=== PATIENT | female | born 1940 | race Caucasian/White ===

== ENCOUNTER 2017-05-02 21:22 | Emergency (ER) | payer SELFPAY ==
[2017-05-02] MEDS ORDERED: Albuterol/Ipratropium NEB.SOL* Albuterol 2.5 MG/Ipratropium 0.5 MG 3 ML INH ONE (22:03)
[2017-05-02] MEDS ORDERED: Albuterol 2.5 MG/3 ML NEB.SOL* (0.083%) INH ONE (22:03)
[2017-05-02] MEDS ORDERED: NS 0.9% 1000 ML* 1,000 ML IV ONE (22:03)
[2017-05-03] MEDS ORDERED: Oseltamivir CAP* 75 MG PO ONE ×2 (00:08→02:00)
[2017-05-03 00:29] LABS: ABS Basophils 0 10^3/ul (0-0.2); ABS Eosinophils 0 10^3/ul (0-0.6); ABS Lymphocytes 2.8 10^3/ul (1.0-4.8); ABS Monocytes 0.8 10^3/ul (0-0.8); ABS Neutrophils 3.1 10^3/ul (1.5-7.7); ABS Nucleated RBC 0.04 10^3/ul; Eosinophil % 0.6 % (0-6); Hematocrit 39 % (35-47); Hemoglobin 13.2 g/dl (12.0-16.0); Lymphocyte % 41.5 % (25-47); Mean Corpuscular HGB Conc 34 g/dl (31-36); Mean Corpuscular Hemoglobin 33 pg (27-31); Mean Corpuscular Volume 96 fL (80-97); Mean Platelet Volume 11 um3 (7.4-10.4); Nucleated Red Blood Cells % 0.6; Red Blood Count 4.05 10^6/ul (4.0-5.4); Red Cell Distribution Width 13 % (10.5-15); White Blood Count 6.7 10^3/ul (3.5-10.8)
[2017-05-03 00:44] LABS: EGFR Non-African American 78.8 (>60)
[2017-05-03] MEDS ORDERED: Albuterol HFA INHALER* 8 gm MDI INH PRN (00:46)
[2017-05-03 00:53] LABS: Platelet Count 105 10^3/ul (150-450)
[2017-05-03] MEDS ORDERED: Codeine TAB* 30 MG PO ONE (00:55)
[2017-05-03] MEDS ORDERED: Potassium Chlor TAB* 20 MEQ TAB.ER PO ONE (01:11)
--- NOTE | 2017-05-03 01:47 | ED ---
Drew Sweet Thomas, scribed for Ayala Myles MD on 05/02/17 at 2205 . Respiratory - HPI Summary HPI Summary: The patient is a 76 year old female referred from [facility] complaining of a cough for the last month and especially in the last 4-5 days. The cough is not productive. Patient additionally complains of sinus congestion. Patient denies fever, chest pain, and shortness of breath. She is a former smoker. - History of Current Complaint Chief Complaint: EDUpperRespComplaint Stated Complaint: SOB, SHAKY, CONFUSED-COMING FROM [facility] Time Seen by Provider: 05/02/17 21:55 Hx Obtained From: Patient Onset/Duration: Lasting Weeks - onset one month, Still Present, Worse Since - last 4-5 days Timing: Constant Current Severity: Moderate Pain Intensity: 8 Character: Cough (Nonproductive) Aggravating Factor(s): Nothing Alleviating Factor(s): Nothing Associated Signs and Symptoms: Negative - fever, chest pain, shortness of breath , Sinus Discomfort - Allergy/Home Medications Allergies/Adverse Reactions: Allergies Allergy/AdvReac Type Severity Reaction Status Date / Time No Known Allergies Allergy Verified 05/02/17 22:20 PMH/Surg Hx/FS Hx/Imm Hx Previously Healthy: No Endocrine/Hematology History: Denies: Hx Diabetes Respiratory History: Reports: Hx Asthma - Surgical History Surgery Procedure, Year, and Place: Laporoscopy, 1971; Jaw Reconstruction ( Deformity), 1979 Infectious Disease History: No Infectious Disease History: Denies: Traveled Outside the [place] in Last 30 Days - Family History Known Family History: Positive: Other - Cancer - Social History Alcohol Use: Occasionally Substance Use Type: Reports: None Smoking Status (MU): Former Smoker Length of Time of Smoking/Using Tobacco: ~1 PPD x 12 Years Review of Systems Negative: Fever Positive: Other - Sinus congestion Negative: Chest Pain Positive: Cough. Negative: Shortness Of Breath All Other Systems Reviewed And Are Negative: Yes Physical Exam - Summary Physical Exam Summary: VITAL SIGNS: Reviewed. GENERAL: Patient is a well-developed and nourished female who is lying comfortable in the stretcher. Patient is not in any acute respiratory distress. HEAD AND FACE: No signs of trauma. No ecchymosis, hematomas or skull depressions. No sinus tenderness. EYES: PERRLA, EOMI x 2, No injected conjunctiva, no nystagmus. EARS: Hearing grossly intact. Ear canals and tympanic membranes are within normal limits. MOUTH: Oropharynx within normal limits. NECK: Supple, trachea is midline, no adenopathy, no JVD, no carotid bruit, no c- spine tenderness, neck with full ROM. CHEST: Symmetric, no tenderness at palpation LUNGS: She has a cough. She has decreased breath sounds bilaterally with some rhonchi. CVS: Regular rate and rhythm, S1 and S2 present, no murmurs or gallops appreciated. ABDOMEN: Soft, non-tender. No signs of distention. No rebound no guarding, and no masses palpated. Bowel sounds are normal. EXTREMITIES: FROM in all major joints, no edema, no cyanosis or clubbing. NEURO: Alert and oriented x 3. No acute neurological deficits. Speech is normal and follows commands. SKIN: Dry and warm Triage Information Reviewed: Yes Vital Signs On Initial Exam: Initial Vitals Temp Pulse Resp BP Pulse Ox 98.2 F 84 24 142/64 94 05/02/17 21:25 05/02/17 21:25 05/02/17 21:25 05/02/17 21:25 05/02/17 21:25 Vital Signs Reviewed: Yes Diagnostics - Vital Signs Vital Signs Temp Pulse Resp BP Pulse Ox 05/02/17 21:25 98.2 F 84 24 142/64 94 - Laboratory Result Diagrams: 05/02/17 00:12 05/02/17 00:12 Lab Statement: Any lab studies that have been ordered have been reviewed, and results considered in the medical decision making process. - Radiology CXR Xray Interpretation: No Acute Changes - No acute process Radiology Interpretation Completed By: ED Physician Disposition - Course Assessment/Plan: The patient is a 76 year old female referred from [facility] complaining of a cough for the last month and especially in the last 4-5 days. She has a cough with decreased breath sounds bilaterally with some rhonchi. In the ED course the patient was given Ventolin, Duoneb, Tamiflu , and IV fluids. Bloodwork was obtained. CXR is negative. Influenza A is positive. The patient is diagnosed with Influenza A and Cough. The patient is instructed to follow up with primary care. The patient is prescribed Tamiflu and codeine. She was instructed to increase fluid intake and home rest. - Diagnoses Provider Diagnoses: Influenza A, Cough Discharge - Discharge Plan Condition: Stable Disposition: HOME Prescriptions: Codeine TAB* [Codeine Tab*] 30 mg PO Q6H PRN #20 tab MDD 4 PRN Reason: Cough Oseltamivir CAP* [Tamiflu CAP*] 75 mg PO BID #10 cap Patient Education Materials: Influenza (ED), Acute Cough (ED) Referrals: [facility] REFERRAL [Outside] - 3 Days Additional Instructions: Increase your fluid intake and home rest. Follow up with your primary care physician in three days. Return to the emergency department for any new or worsening symptoms. The documentation as recorded by the Drew galindo Thomas accurately reflects the service I personally performed and the decisions made by me, Ayala Myles MD.
[2017-05-03] MEDS ORDERED: Oseltamivir CAP* 75 MG ONE (01:50)
[2017-05-03] MEDS ORDERED: Codeine TAB* 30 MG PO SCH (02:00)
[2017-05-03 02:19] VITALS: BP 144/59
--- NOTE | 2017-05-03 06:23 | RAD ---
INDICATION: Cough. COMPARISON: There are no prior studies available for comparison. TECHNIQUE: A portable view of the chest was obtained. FINDINGS: Cardiac and mediastinal contours appear to be within normal limits. The lungs are hyperinflated and clear. No pleural effusion is seen. IMPRESSION: NO EVIDENCE FOR ACUTE DISEASE.
== END 2017-05-03 02:18 | disposition home or self-care (01) ==
LOC: ED 21:22 → MERGE 21:22 → ED 05-03 02:18
DX: J09.X2 Influenza due to identified novel influenza A virus with other respiratory manifestations (principal); R05 Cough; Z87.891 Personal history of nicotine dependence; J45.909 Unspecified asthma, uncomplicated
CPT/HCPCS: 36415; 71010; 80053; 83605; 85025; 86140; 87040; 87502; 94640; 99284; A9270-GY

== ENCOUNTER 2017-11-07 08:11 | Emergency (ER) | payer OTHER ==
[2017-11-07 08:23] VITALS: BP 152/73
--- NOTE | 2017-11-07 09:34 | UC ---
Skin Complaint HPI - HPI Summary HPI Summary: She was hiking in the [facility] on Thursday 11/02 and during the hike she noticed someting had stung her in the inner thigh of her right leg. She removed her pants after the hike that evening and could not find any insect. She states the rash on thigh has become larger as the day progresses and now it real. She has been taking atarax for several decades due to urticaria and she took one this morning but has not helped. States 3 days ago has chills associated with diarrhea but that has subsided. - History of Current Complaint Chief Complaint: UCSkin Time Seen by Provider: 11/07/17 09:09 Stated Complaint: BUG BITE Hx Obtained From: Patient ?: No Onset/Duration: Sudden Onset, Lasting Days Skin Exposure Onset/Duration: Days Ago Timing: Constant Onset Severity: Mild Current Severity: Moderate Pain Intensity: 4 Location: Discrete, Other - right thigh Character: Pruritus, Pain Aggravating Factor(s): Nothing Alleviating Factor(s): Nothing Associated Signs & Symptoms: Positive: Negative Related History: Insect Bite/Sting - Allergy/Home Medications Allergies/Adverse Reactions: Allergies Allergy/AdvReac Type Severity Reaction Status Date / Time No Known Allergies Allergy Verified 05/02/17 22:20 Review of Systems Constitutional: Negative All Other Systems Reviewed And Are Negative: Yes PMH/Surg Hx/FS Hx/Imm Hx Previously Healthy: Yes - Surgical History Surgical History: Yes Surgery Procedure, Year, and Place: Laporoscopy, 1971; Jaw Reconstruction ( Deformity), 1979 - Family History Known Family History: Positive: Hypertension, Other - Cancer - Social History Alcohol Use: Daily Substance Use Type: None Smoking Status (MU): Former Smoker Length of Time of Smoking/Using Tobacco: ~1 PPD x 12 Years When Did the Patient Quit Smoking/Using Tobacco: 1978 - Immunization History Most Recent Influenza Vaccination: Not the Season Physical Exam Triage Information Reviewed: Yes Appearance: Well-Appearing, No Pain Distress, Well-Nourished Vital Signs: Initial Vital Signs Temp 98.6 F 11/07/17 08:19 Pulse 86 11/07/17 08:19 Resp 18 11/07/17 08:19 BP 152/73 11/07/17 08:19 Pulse Ox 100 11/07/17 08:19 Vital Signs Reviewed: Yes ENT: Positive: Hearing grossly normal Neck: Positive: Supple, Nontender, No Lymphadenopathy Respiratory: Positive: Chest non-tender, Lungs clear, Normal breath sounds, No respiratory distress, No accessory muscle use Cardiovascular: Positive: RRR, No Murmur, Pulses Normal, Brisk Capillary Refill Abdomen Description: Positive: Nontender, No Organomegaly, Soft Bowel Sounds: Positive: Present Skin Exam: Other - Macular rash 4.5x5.5 inches in dimensions, which is homegenous and blanching with pressure, central orifice with surrounding hematoma 1.8x0.5cm in dimension, no discharge, edema, bleeding or tenderness on palpation Course/Dx - Course Course Of Treatment: Patient was bitten by an insect 6 days ago, she has developed increasing redness around site of bite with burning/itching which is not responding to hydroxyzine. Start prednisone as prescribed. Patient is traveling from [place]. Discussed with patient that if chills, fever, swelling develops with pain or increased erythema to start keflex for treatment of cellulitis - Diagnoses Provider Diagnoses: Allergic reaction to insect bite. Cellulitis. HTN Discharge - Sign-Out/Discharge Documenting (check all that apply): Discharge/Admit/Transfer - Discharge Plan Condition: Good Disposition: HOME Prescriptions: Cephalexin CAP* [Keflex CAP*] 500 mg PO TID 5 Days #15 cap predniSONE TAB* [Deltasone 20 MG TAB*] 40 mg PO DAILY 3 Days #6 tab Patient Education Materials: Prednisone (By mouth), Cellulitis (ED), Insect Bite or Sting (ED), Chronic Hypertension (ED) Referrals: No Primary Care Phys,NOPCP [Primary Care Provider] - - Billing Disposition and Condition Condition: GOOD Disposition: Home
== END 2017-11-07 09:46 | disposition home or self-care (01) ==
LOC: UCEAST 08:11
DX: T63.481A Toxic effect of venom of other arthropod, accidental (unintentional), initial encounter (principal); L03.115 Cellulitis of right lower limb; I10 Essential (primary) hypertension
CPT/HCPCS: 99212; G0463

== ENCOUNTER 2018-11-11 08:47 | Emergency (ER) | payer OTHER ==
[2018-11-11] MEDS ORDERED: Albuterol 2.5 MG/3 ML NEB.SOL* (0.083%) INH ONE (09:13)
[2018-11-11] MEDS ORDERED: Ipratropium 0.5MG/2.5ML NEB* 0.5 MG/2.5 ML NEB.SOLN INH ONE (09:13)
--- NOTE | 2018-11-11 09:35 | UC ---
Respiratory Complaint HPI - HPI Summary HPI Summary: 77 yo female with cough x about a week some chest tightness hx of bronchitis Hoarse x 2 days no f/c no CP - History of Current Complaint Chief Complaint: UCGeneralIllness Stated Complaint: CHEST CONGESTION, AND COUGH Time Seen by Provider: 11/11/18 09:09 Hx Obtained From: Patient Onset/Duration: Gradual Onset, Lasting Days Timing: Constant Severity Initially: Mild Severity Currently: Moderate Pain Intensity: 0 Pain Scale Used: 0-10 Numeric Character: Cough: Nonproductive Aggravating Factors: Nothing Alleviating Factors: Nothing Associated Signs And Symptoms: Positive: Wheezing, Nasal Congestion Related History: Similar Episode/Dx as: - bronchitis - Allergies/Home Medications Allergies/Adverse Reactions: Allergies Allergy/AdvReac Type Severity Reaction Status Date / Time Sulfa (Sulfonamide Allergy Unknown Verified 11/11/18 09:01 Antibiotics) Reaction Details Home Medications: Home Medications Blood Pressure Med 11/11/18 [History] Ibuprofen TAB* [Advil TAB*] 200 mg PO Q6H PRN 11/11/18 [History Confirmed ] hydrOXYzine HCL TAB* [Atarax 10 MG TAB*] 10 mg PO QID PRN 11/11/18 [History Confirmed 11/11/18] PMH/Surg Hx/FS Hx/Imm Hx Previously Healthy: Yes Respiratory History: Asthma, Bronchitis, Pneumonia GI/ History: Ulcer - Surgical History Surgical History: Yes Surgery Procedure, Year, and Place: Laporoscopy, 1971; Jaw Reconstruction ( Deformity), 1979. abdominal surgery for peritonitis - 70's - Family History Known Family History: Positive: Hypertension, Other - Cancer - Social History Alcohol Use: Daily Alcohol Amount: 2-3 glasses wine per night, none in past week Substance Use Type: None Smoking Status (MU): Former Smoker Length of Time of Smoking/Using Tobacco: ~1 PPD x 12 Years When Did the Patient Quit Smoking/Using Tobacco: 1978 - Immunization History Most Recent Influenza Vaccination: Not the 2017/2017 Season Review of Systems All Other Systems Reviewed And Are Negative: Yes Constitutional: Positive: Fatigue Skin: Positive: Negative Eyes: Positive: Negative ENT: Positive: Nasal Discharge, Sinus Congestion Respiratory: Positive: Cough Cardiovascular: Positive: Negative Gastrointestinal: Positive: Negative Genitourinary: Positive: Negative Motor: Positive: Negative Neurovascular: Positive: Negative Musculoskeletal: Positive: Negative Neurological: Positive: Negative Psychological: Positive: Negative Physical Exam Triage Information Reviewed: Yes Appearance: Well-Appearing, No Pain Distress, Well-Nourished Vital Signs: Initial Vital Signs Temp 99.4 F 11/11/18 08:56 Pulse 94 11/11/18 08:56 Resp 18 11/11/18 08:56 BP 124/69 11/11/18 08:56 Pulse Ox 93 11/11/18 08:56 Vital Signs Reviewed: Yes Eyes: Positive: Conjunctiva Clear ENT: Positive: Hearing grossly normal, Pharynx normal, Nasal congestion, TMs normal, Hoarse voice, Uvula midline. Negative: Nasal drainage, Tonsillar swelling, Tonsillar exudate, Trismus, Muffled voice, Dental tenderness, Sinus tenderness Dental: Negative: Abscess @ Neck: Positive: Supple, Nontender, No Lymphadenopathy Respiratory: Positive: No respiratory distress, No accessory muscle use, Crackles - ? rales right base, Wheezing - with forced exp Cardiovascular: Positive: RRR, No Murmur Musculoskeletal: Positive: ROM Intact, No Edema Neurological: Positive: Alert Psychological Exam: Normal Skin Exam: Normal Diagnostics - Radiology No standard instances Radiology Interpretation Completed By: Radiologist Summary of Radiographic Findings: CXR : NAD Re-Evaluation - Re-Evaluation First Eval Change: Improved - breathing better Respiratory Course/Dx - Differential Dx/Diagnosis Provider Diagnosis: Acute bronchitis, Laryngitis Discharge - Sign-Out/Discharge Documenting (check all that apply): Patient Departure All imaging exams completed and their final reports reviewed: Yes - Discharge Plan Condition: Stable Disposition: HOME Patient Education Materials: Acute Bronchitis (ED), Laryngitis (ED) Additional Instructions: see your MD early next week for recheck return here for new or worsening symptoms use your inhalers for one week - Billing Disposition and Condition Condition: STABLE Disposition: Home
[2018-11-11 10:22] VITALS: BP 131/70
[2018-11-11] MEDS ORDERED: predniSONE TAB* 20 MG PO ONE (10:36)
== END 2018-11-11 10:45 | disposition home or self-care (01) ==
LOC: UCEAST 08:47
DX: J98.01 Acute bronchospasm (principal); J04.0 Acute laryngitis; Z88.2 Allergy status to sulfonamides; Z87.891 Personal history of nicotine dependence
CPT/HCPCS: 71046; 99212; G0463; J7512

== ENCOUNTER 2018-12-11 11:23 | Emergency (ER) | payer MEDICARE, OTHER ==
[2018-12-11] MEDS ORDERED: Ipratropium 0.5MG/2.5ML NEB* 0.5 MG/2.5 ML NEB.SOLN INH ONE (11:51)
[2018-12-11] MEDS ORDERED: predniSONE TAB* 20 MG PO ONE (11:51)
[2018-12-11] MEDS ORDERED: Albuterol 2.5 MG/3 ML NEB.SOL* (0.083%) INH ONE (11:51)
[2018-12-11] MEDS ORDERED: Acetaminophen TAB* 325 MG PO ONE (11:52)
[2018-12-11 12:33] VITALS: BP 115/43
[2018-12-11] MEDS ORDERED: Albuterol HFA INHALER* 8 gm MDI INH ONE (12:50)
--- NOTE | 2018-12-11 12:55 | UC ---
Respiratory Complaint HPI - HPI Summary HPI Summary: 78 yo female with about one week of progressively worsening cough and congestion cough productive at times now with about a day of fever chills and fatigue no cp or sob - History of Current Complaint Chief Complaint: UCRespiratory Stated Complaint: COUGH CHEST CONGESTION Time Seen by Provider: 12/11/18 11:44 Hx Obtained From: Patient Onset/Duration: Gradual Onset Timing: Constant Severity Initially: Mild Severity Currently: Moderate Pain Intensity: 0 Pain Scale Used: 0-10 Numeric Character: Cough: Productive Aggravating Factors: Nothing Associated Signs And Symptoms: Positive: Fever, Chills, Wheezing - Allergies/Home Medications Allergies/Adverse Reactions: Allergies Allergy/AdvReac Type Severity Reaction Status Date / Time Sulfa (Sulfonamide Allergy Unknown Verified 12/11/18 11:36 Antibiotics) Reaction Details PMH/Surg Hx/FS Hx/Imm Hx Previously Healthy: Yes Respiratory History: Asthma, Bronchitis, Pneumonia - Surgical History Surgical History: Yes Surgery Procedure, Year, and Place: Laporoscopy, 1971; Jaw Reconstruction ( Deformity), 1979. abdominal surgery for peritonitis - - Family History Known Family History: Positive: Hypertension, Other - Cancer - Social History Alcohol Use: Daily Alcohol Amount: 2-3 glasses wine per night, none in past week Substance Use Type: None Smoking Status (MU): Former Smoker Length of Time of Smoking/Using Tobacco: ~1 PPD x 12 Years When Did the Patient Quit Smoking/Using Tobacco: 1978 - Immunization History Most Recent Influenza Vaccination: Not the 2016/2017 Season Review of Systems All Other Systems Reviewed And Are Negative: Yes Constitutional: Positive: Fever, Chills, Fatigue Skin: Positive: Negative ENT: Positive: Negative Respiratory: Positive: Cough, Other - wheezing Cardiovascular: Positive: Negative Gastrointestinal: Positive: Negative Genitourinary: Positive: Negative Motor: Positive: Negative Neurovascular: Positive: Negative Musculoskeletal: Positive: Negative Neurological: Positive: Negative Psychological: Positive: Negative Physical Exam Triage Information Reviewed: Yes Appearance: Well-Appearing, No Pain Distress, Well-Nourished Vital Signs: Initial Vital Signs Temp 101.6 F 12/11/18 11:32 Pulse 115 12/11/18 11:32 Resp 20 12/11/18 11:32 BP 118/58 12/11/18 11:32 Pulse Ox 93 12/11/18 11:32 Vital Signs Reviewed: Yes Eyes: Positive: Conjunctiva Clear ENT: Positive: Hearing grossly normal. Negative: Nasal congestion, Nasal drainage, Tonsillar exudate, Trismus, Muffled voice, Hoarse voice Dental Exam: Normal Neck: Positive: Supple, Nontender, No Lymphadenopathy Respiratory: Positive: No accessory muscle use, Wheezing Cardiovascular: Positive: RRR Musculoskeletal: Positive: ROM Intact, No Edema Neurological: Positive: Alert Psychological Exam: Normal Skin Exam: Normal Re-Evaluation - Re-Evaluation First Eval Re-Evaluation Time: 12:50 Change: Improved - lungs clear, subjectively improved Respiratory Course/Dx - Course Course Of Treatment: patient declines CXR (had one here about a month ago) state she will return for worsening symptom or if not improved in a few days we see here primary when she is back home (next week) - Differential Dx/Diagnosis Provider Diagnosis: Acute bronchitis with bronchospasm Discharge - Sign-Out/Discharge Documenting (check all that apply): Patient Departure All imaging exams completed and their final reports reviewed: No Studies - Discharge Plan Condition: Stable Disposition: HOME Prescriptions: Amoxicillin PO (*) [Amoxicillin 875 MG (*)] 875 mg PO BID #14 tab predniSONE [Deltasone 20 MG TAB] 40 mg PO DAILY #8 tab Patient Education Materials: Acute Bronchitis (ED) Referrals: No Primary Care Phys,NOPCP [Primary Care Provider] - Additional Instructions: recheck in ER for new or worsening symptoms recheck here in 2-3 days if still febrile recheck with your MD in [place] in 1-2 weeks USE INHALER (PROAIR) 2 PUFFS 4X DAY FOR ONE WEEK - Billing Disposition and Condition Condition: STABLE Disposition: Home
== END 2018-12-11 13:07 | disposition home or self-care (01) ==
LOC: UCEAST 11:23
DX: J20.9 Acute bronchitis, unspecified (principal); Z88.2 Allergy status to sulfonamides
CPT/HCPCS: 99213; A9270-GY; G0463; J7512